=== PATIENT | male | born 1945 | race Caucasian/White ===

== ENCOUNTER 2018-01-26 08:20 | Outpatient (CLI) | payer MEDICARE, OTHER ==
--- NOTE | 2018-01-26 10:13 | RAD ---
LUMBAR SPINE 3 VIEWS: HISTORY: A 72-year-old male with a history of lumbar radiculopathy and low back pain for months. Neutral, flexion, extension, and lateral views of the lumbar spine are performed. Multilevel disk-os teophytosis with marked narrowing at L4-L5 and some posterior osteophytes as well as facet arthrosis. No evidence for abnormal translation between flexion and extension. IMPRESSION: Extensive spondylosis, particularly at L4-L5. No abnormal translation. POS: [facility]
== END 2018-01-26 08:21 | disposition home or self-care (01) ==
LOC: TBSIIMAG 08:20
PROVIDERS: ATTEND Neurological Surgery
DX: M47.26 Other spondylosis with radiculopathy, lumbar region (principal)
CPT/HCPCS: 72100

== ENCOUNTER 2018-07-28 07:52 | Outpatient (CLI) | payer MEDICARE, OTHER ==
[2018-07-28 11:19] LABS: #Eosinphils 0.1 thou/uL (0.0-0.7); #Lymphocytes 1.6 thou/uL (1.20-3.40); #Monocytes 0.7 thou/uL (0.11-0.59); #Neutrophils 5.1 thou/uL (1.40-6.50); %Basophils 0.5 % (0.0-1.0); %Eosinophils 1.1 % (0.0-10.0); %Lymphocytes 21.7 % (21.0-51.0); %Monocytes 9.6 % (0.0-10.0); Mean Corpuscular HGB CONC 31.3 g/dL (32.0-36.0); Mean Corpuscular Hemoglobin 26.4 pg (27.0-31.0); Mean Corpuscular Volume 84.2 fL (78.0-98.0); Mean Platelet Volume 7.6 fL (7.4-10.4); Platelet Count 263 thou/uL (130-400); RBC Distribution Width 13.6 % (11.5-14.5); Red Blood Cell (RBC) Count 5.31 mill/uL (4.70-6.10); White Blood Cell (WBC) Count 7.6 thou/uL (4.8-10.8)
[2018-07-28 11:45] LABS: ALT (SGPT) 9 U/L (8-55); AST (SGOT) 12 U/L (5-34); Albumin 3.9 g/dL (3.4-4.8); Alkaline Phosphatase 106 U/L (40-150); Anion Gap 14 mmol/L (10-20); BUN (Urea Nitrogen) 10 mg/dL (8.4-25.7); Bilirubin, Total 0.7 mg/dL (0.2-1.2); Calc. Creatinine Clearance 0 mL/min (70-130); Carbon Dioxide 28 mmol/L (23-31); Chloride 102 mmol/L (98-107); Estimated GFR-MDRD 90; Globulin 2.8 g/dL (2.4-3.5); Glucose 105 mg/dL (83-110); Potassium 4.3 mmol/L (3.5-5.1); Protein, Total 6.7 g/dL (5.8-8.1); Sodium 140 mmol/L (136-145)
== END 2018-07-28 07:53 | disposition home or self-care (01) ==
LOC: LABBT 07:52
PROVIDERS: ATTEND Internal Medicine Cardiovascular Disease
DX: Z01.812 Encounter for preprocedural laboratory examination (principal); R06.02 Shortness of breath
CPT/HCPCS: 80053; 85025

== ENCOUNTER → 2018-08-02 | Day surgery (SDC) | payer MEDICARE, OTHER ==
[2018-07-28 10:27] VITALS: BMI 38.6
[~2018-08-02] MED LIST: Diazepam 5 MG TAB ONE; Fentanyl 100 MCG/2 ML VIAL ONE; Heparin 10,000 UNITS/1 ML VIAL ONE; Iopamidol 370 76% 100 ML VIAL ONE; Isoproterenol 0.2 MG/1 ML AMP ONE; Lidocaine 1% (PF) 30 ML VIAL ONE; Midazolam HCl 2 mg/2 ml Vial ONE; Morphine 2 MG/ML SYRINGE ONE; Nitroglycerin 100MG/250ML BOT 250 ML ONE; Verapamil 5 MG/2 ML VIAL ONE
--- NOTE | 2018-08-02 22:48 | CON ---
DATE OF CONSULTATION: HISTORY OF PRESENT ILLNESS: This is a 73-year-old gentleman previously evaluated by Dr. Frankel about a year and a half ago. At that time, he had a nuclear stress study showing inferior scar and a diminished ejection fraction of around 20-25 percent. He was treated with medication with reported improvement in his ejection fraction, although had not had a repeat echo. This is the most recent echo was from November 16, 2016, showing 25% ejection fraction. He has been complaining of shortness of breath and this has been going on for at least the last year. He was scheduled for a stimulator to be placed in his back due to chronic back pain and because of this, repeat cardiac catheterization was recommended. PAST MEDICAL HISTORY: Includes: 1. Hypertension. 2. Dyslipidemia. 3. Obesity. 4. Previous atrial flutter. 5. Gastroesophageal reflux. 6. Obstructive sleep apnea. MEDICATIONS: Include: 1. Prilosec 20 daily. 2. Coreg 3.125 b.i.d. 3. Losartan 50 mg daily. 4. HCTZ 25 mg daily. 5. Isosorbide 30 daily. 6. Finasteride 5 mg daily. 7. Flomax 0.4 daily. 8. Lorazepam 0.5 p.r.n. anxiety. 9. Aspirin 81 daily. 10. Lamisil 250 daily. PAST SURGICAL HISTORY: Includes hernia repairs x6, beginning when he was [id number]. Also he had some sort of nerve tumor removed, has had previous back surgery, Aflutter, ablation, left hip surgery about a year and a half ago and a prior appendectomy. SOCIAL HISTORY: He is a nonsmoker. Does not drink. He is and accompanied by his . ALLERGIES: MELOXICAM. REVIEW OF SYSTEMS: He has nocturia x3, occasionally gets edema of his lower extremities. He does have snoring. He is unable to exercise due to a combination of back and hip pain and dyspnea. PHYSICAL EXAMINATION: GENERAL: He is alert, cooperative gentleman, overweight at 285 pounds. NECK: Without carotid bruits. LUNGS: Clear to auscultation. CARDIAC: Regular rate and rhythm. No murmurs. ABDOMEN: Obese, nontender. EXTREMITIES: He has palpable femoral pulses as well as a palpable pedal pulse in both feet. He has no peripheral edema today. I have reviewed his cardiac catheterization and he has rather small LAD diagonal vessels, which would be targets. The circumflex originates from his right coronary cusp and gives off a small first OM and a larger second OM with some moderate disease and haziness proximally. His right coronary artery occludes distally and does not fill any sizable vessels. He does have an acute marginal with some significant disease that may or may not be large enough to graft. Potential targets include diseased LAD diagonal, both with significant disease and obtuse marginal 2 and possibly a right acute marginal. Informed consent has been obtained and I would like to obtain a cardiac echo repeat, since it has been about a year and a half since his previous study to assess his left ventricular systolic function. Job ID: [id number]
== END ==
LOC: CCL 05:47
PROVIDERS: ATTEND Internal Medicine Cardiovascular Disease
PROC: 4A023N7 Measurement of Cardiac Sampling and Pressure, Left Heart, Percutaneous Approach (ICD-10-PCS; principal; 2018-08-02)
PROC: B2111ZZ Fluoroscopy of Multiple Coronary Arteries using Low Osmolar Contrast (ICD-10-PCS; 2018-08-02)
DX: I25.10 Atherosclerotic heart disease of native coronary artery without angina pectoris (principal); I25.82 Chronic total occlusion of coronary artery; I10 Essential (primary) hypertension; E78.5 Hyperlipidemia, unspecified; K21.9 Gastro-esophageal reflux disease without esophagitis; E78.00 Pure hypercholesterolemia, unspecified; G47.33 Obstructive sleep apnea (adult) (pediatric); I25.5 Ischemic cardiomyopathy; I48.3 Typical atrial flutter; E66.9 Obesity, unspecified; Z68.38 Body mass index [BMI] 38.0-38.9, adult; Z79.82 Long term (current) use of aspirin; Z79.899 Other long term (current) drug therapy; Z88.6 Allergy status to analgesic agent
CPT/HCPCS: 93458; 96374; 99152; C1769; J1644; J2001; J2250; J2270; J3010; Q9967

== ENCOUNTER 2018-08-24 04:38 | Outpatient (CLI) | payer MEDICARE, OTHER ==
[2018-08-24 12:32] LABS: #Eosinphils 0.1 thou/uL (0.0-0.7); #Monocytes 0.8 thou/uL (0.11-0.59); #Neutrophils 4.8 thou/uL (1.40-6.50); %Basophils 0.6 % (0.0-1.0); %Eosinophils 1.8 % (0.0-10.0); %Lymphocytes 25.8 % (21.0-51.0); %Monocytes 9.9 % (0.0-10.0); Hemoglobin 14.4 g/dL (14.0-18.0); Mean Corpuscular HGB CONC 30.7 g/dL (32.0-36.0); Mean Corpuscular Hemoglobin 26.4 pg (27.0-31.0); Mean Corpuscular Volume 85.9 fL (78.0-98.0); Mean Platelet Volume 7.9 fL (7.4-10.4); Platelet Count 228 thou/uL (130-400); RBC Distribution Width 14.1 % (11.5-14.5); Red Blood Cell (RBC) Count 5.47 mill/uL (4.70-6.10); White Blood Cell (WBC) Count 7.7 thou/uL (4.8-10.8)
[2018-08-24 12:50] LABS: Anion Gap 10 mmol/L (10-20); BUN (Urea Nitrogen) 12 mg/dL (8.4-25.7); Calc. Creatinine Clearance 0 mL/min (70-130); Calcium 9.5 mg/dL (7.8-10.44); Carbon Dioxide 32 mmol/L (23-31); Chloride 102 mmol/L (98-107); Estimated GFR-MDRD 86; Glucose 93 mg/dL (83-110); Potassium 4.1 mmol/L (3.5-5.1); Sodium 140 mmol/L (136-145)
--- NOTE | 2018-08-25 09:02 | EKG ---
Test Reason : Blood Pressure : / mmHG Vent. Rate : 072 BPM Atrial Rate : 072 BPM P-R Int : 180 ms QRS Dur : 146 ms QT Int : 436 ms P-R-T Axes : 091 094 083 degrees QTc Int : 477 ms Suspect arm lead reversal, interpretation assumes no reversal Normal sinus rhythm with sinus arrhythmia Right bundle branch block Abnormal ECG When compared with ECG of 17-NOV-2016 06:34, No significant change was found Confirmed by DR. King MADRIGAL ([id number]) on 08/25/2018 9:02:02 AM Referred By: ACACIA Confirmed By:DR. King MADRIGAL
== END 2018-08-24 04:39 | disposition home or self-care (01) ==
LOC: LABBT 04:38
PROVIDERS: ATTEND Thoracic Surgery (Cardiothoracic Vascular Surgery)
DX: Z01.818 Encounter for other preprocedural examination (principal); I25.10 Atherosclerotic heart disease of native coronary artery without angina pectoris
CPT/HCPCS: 80048; 85025; 86850; 86900; 86901; 93005; 93010

== ENCOUNTER 2018-08-24 10:15 | Inpatient (IN) | payer MEDICARE, OTHER ==
[2018-08-25] MEDS ORDERED: Bupivacaine HCl 0.5%/Epinephrine 1:200,000/PF 30 ml Vial ONE (06:32)
[2018-08-25] MEDS ORDERED: Dexamethasone 4 mg/ml Vial ONE (06:32)
[2018-08-25] MEDS ORDERED: Albumin 5% 500 ML ONE (06:32)
[2018-08-25] MEDS ORDERED: Midazolam HCl 2 mg/2 ml Vial ONE (06:33)
[2018-08-25] MEDS ORDERED: Fentanyl 100 MCG/2 ML VIAL ONE (06:33)
[2018-08-25] MEDS ORDERED: Vecuronium 10 MG VIAL ONE ×2 (06:34→13:26)
[2018-08-25] MEDS ORDERED: Midazolam HCl 5 mg/5 ml Vial ONE (06:34)
[2018-08-25] MEDS ORDERED: Dexmedetomidine 200 MCG/2 ML VIAL ONE (06:34)
[2018-08-25] MEDS ORDERED: Heparin 10,000 UNITS/1 ML VIAL 30,000 UNITS in Sodium Chloride 0.9% 1,000 ML FS SCH (07:15)
[2018-08-25] MEDS ORDERED: Phenylephrine 1% Nasal Spray 15 ML BOT ONE (09:57)
[2018-08-25] MEDS ORDERED: PHENYLEPHRINE-NS 100 MCG/ML 10 ML SYRINGE ONE ×2 (09:57→13:26)
[2018-08-25] MEDS ORDERED: DOPamine 400 MG/D5W 250 ML 250 ML IVPB PRN (12:20)
[2018-08-25] MEDS ORDERED: Promethazine HCl 25 MG/ML VIAL IM PRN (12:20)
[2018-08-25] MEDS ORDERED: HYDROcodone/Acetaminophen 5/325 mg Tablet PO PRN (12:20)
[2018-08-25] MEDS ORDERED: Bisacodyl 5 MG TAB PO PRN (12:20)
[2018-08-25] MEDS ORDERED: Hetastarch 6% 500 ML 500 ML IVPB PRN (12:20)
[2018-08-25] MEDS ORDERED: Guaifenesin DM 100-10/5 ML UDCUP PO PRN (12:20)
[2018-08-25] MEDS ORDERED: Nitroglycerin 50 MG/250 ML BOT 250 ML IVPB PRN (12:20)
[2018-08-25] MEDS ORDERED: Bisacodyl 10 MG SUPP PR PRN (12:20)
[2018-08-25] MEDS ORDERED: Mag-Al 1200 mg/1200 mg/30 ML UDCUP PO PRN (12:20)
[2018-08-25] MEDS ORDERED: Fentanyl 100 MCG/2 ML VIAL SLOW IVP PRN (12:20)
[2018-08-25] MEDS ORDERED: Norepinephrine 8 MG/0.9% NS 250 ML IVPB PRN (12:20)
[2018-08-25] MEDS ORDERED: Morphine 2 MG/ML SYRINGE SLOW IVP PRN (12:20)
[2018-08-25] MEDS ORDERED: Potassium Chloride 20 MEQ/100 ML PREMIX BAG IVPB PRN (12:20)
[2018-08-25] MEDS ORDERED: CEFAZOLIN/Water 2 GM/20 ML SYRINGE SLOW IVP SCH (12:20)
[2018-08-25] MEDS ORDERED: Post-Op Insulin Drip Protocol IVPB ONE (12:20)
[2018-08-25] MEDS ORDERED: niCARdipine HCl 25 MG in Sodium Chloride 0.9% 250 ML 240 ML IVPB PRN (12:20)
[2018-08-25] MEDS ORDERED: Ondansetron PF 4 MG/2 ML Vial IVP PRN (12:20)
[2018-08-25] MEDS ORDERED: HUMULIN R 100 UNITS in Sodium Chloride 0.9% 100 ML IVPB SCH (12:26)
[2018-08-25] MEDS ORDERED: Dextrose 5% in Water 1,000 ML IV PRN (12:26)
[2018-08-25] MEDS ORDERED: Dextrose 50% Abboject 50 ML SYRINGE SLOW IVP PRN (12:26)
[2018-08-25] MEDS ORDERED: Insulin Regular 300 UNITS/3 ML VIAL SC PRN (12:26)
[2018-08-25] MEDS ORDERED: Magnesium 2 GM/50 ML 2 GM in Premix Bag 1 BAG IVPB SCH (12:45)
[2018-08-25 12:48] LABS: Hemoglobin 13.3 g/dL (14.0-18.0); Mean Corpuscular HGB CONC 31.3 g/dL (32.0-36.0); Mean Corpuscular Hemoglobin 26.7 pg (27.0-31.0); Mean Corpuscular Volume 85.2 fL (78.0-98.0); Mean Platelet Volume 8.4 fL (7.4-10.4); Platelet Count 171 thou/uL (130-400); Red Blood Cell (RBC) Count 4.99 mill/uL (4.70-6.10); White Blood Cell (WBC) Count 17.2 thou/uL (4.8-10.8)
[2018-08-25 12:55] LABS: INR-International Normal Ratio 1.3; PTT 31.2 SEC (22.9-36.1); Prothrombin Time 15.9 SEC (12.0-14.7)
[2018-08-25] MEDS: Sodium Chloride 0.9% 1,000 ML IV SCH ×2 (12:56→23:10)
[2018-08-25 13:04] LABS: Anion Gap 10 mmol/L (10-20); BUN (Urea Nitrogen) 14 mg/dL (8.4-25.7); Calc. Creatinine Clearance 148 mL/min (70-130); Carbon Dioxide 26 mmol/L (23-31); Chloride 107 mmol/L (98-107); Estimated GFR-MDRD Greater than 90; Glucose 171 mg/dL (83-110); Potassium 4.8 mmol/L (3.5-5.1); Sodium 138 mmol/L (136-145)
[2018-08-25 13:14] LABS: Band 6 % (5-11); Lymphocytes 6 % (21-51); MDiff Complete? YES; Monocytes 6 % (0-10); Neutrophil 80 % (42-75); Ovalocytes SLIGHT = 2-5 cells (100X) (0-1/hpf); Platelet Morphology Comment Appears Adequate; Polychromasia SLIGHT = 2-3 cells (100X) (0-2/hpf); Reactive Lymphocytes 2 % (0-10)
[2018-08-25] MEDS ORDERED: Glycopyrrolate 0.2 MG/ML 5 ML SYRINGE ONE (13:26)
[2018-08-25] MEDS ORDERED: Heparin 5,000 UNITS/ML VIAL ONE (13:26)
[2018-08-25] MEDS ORDERED: Nitroglycerin 50 MG/250 ML BOT ONE (13:26)
[2018-08-25] MEDS ORDERED: Cardioplegic Soln 1,000 ML BAG ONE (13:26)
[2018-08-25] MEDS ORDERED: Mannitol 12.5 GM/50 ML ONE (13:26)
[2018-08-25] MEDS ORDERED: Potassium Chloride 60 MEQ/30 ML VIAL ONE (13:26)
[2018-08-25] MEDS ORDERED: Aminocaproic Acid 5 GM/20 ML VIAL ONE (13:26)
[2018-08-25] MEDS ORDERED: Papaverine 60 MG/2 ML VIAL ONE (13:26)
[2018-08-25] MEDS ORDERED: Calcium Chloride 1 GM/10 ML Abboject SYRINGE ONE (13:26)
[2018-08-25] MEDS ORDERED: Protamine Sulfate 250 MG/25 ML VIAL ONE (13:26)
[2018-08-25] MEDS ORDERED: Thrombin 5000 UNITS/5 ML VIAL ONE (13:26)
[2018-08-25] MEDS ORDERED: Ondansetron PF 4 MG/2 ML Vial ONE (13:26)
[2018-08-25] MEDS ORDERED: Ketorolac Tromethamine 30 MG/ML VIAL ONE (13:26)
[2018-08-25] MEDS ORDERED: Lidocaine 2% PF 100 mg/5 ml Syringe ONE (13:26)
[2018-08-25] MEDS ORDERED: Dexamethasone 20 MG/5 ML VIAL ONE (13:26)
[2018-08-25] MEDS ORDERED: Heparin 30,000 units/30 ml VIAL ONE (13:26)
[2018-08-25] MEDS ORDERED: Magnesium 5 GM/10 ML VIAL ONE (13:26)
[2018-08-25] MEDS ORDERED: ePHEDrine 50 MG/ML VIAL ONE (13:26)
[2018-08-25] MEDS ORDERED: Sodium Bicarb 50 MEQ/50 ML VIAL ONE (13:26)
[2018-08-25] MEDS: CEFAZOLIN 2 GM in Premix Bag 1 BAG IVPB SCH ×2 (13:31→22:08)
--- NOTE | 2018-08-25 13:44 | OP ---
DATE OF PROCEDURE: 08/25/2018 PREOPERATIVE DIAGNOSIS: Coronary artery disease. POSTOPERATIVE DIAGNOSIS: Coronary artery disease with very large heart. PROCEDURE PERFORMED: Coronary artery bypass graft x3, left internal mammary artery large to a 2 mm mid LAD with calcified licona, saphenous vein graft to a 2 to 2.5 mm OM, and saphenous vein graft to a 1.5 mm diagonal. PIER HAND: Liam. TRANSFUSION: None. DESCRIPTION OF PROCEDURE: After adequate anesthesia had been obtained, Dr. Wheeler performed an endovascular vein harvest of the left greater saphenous vein while I performed a median sternotomy. The left internal mammary artery was harvested. The patient heparinized. The mammary divided distally. It was treated with intraluminal papaverine. Left lobe of the thymus gland was resected to allow access into the mediastinum. The pericardial traction sutures were placed. Aorta and right atrium were cannulated, and cardiopulmonary bypass begun. Heart was quite large. The vessels were inspected for grafting. No right coronary system could be identified for grafting and the acute marginal was dissected out, but felt to be too small to graft. The OM1 was also too small to graft. The left atrial appendage was very large, thick, and covered in fat. Following aortic cross-clamping by Dr. Wheeler, 1200 mL of cold blood cardioplegia was given through the aortic root. Following which, the three distal anastomosis performed. Cross-clamp was removed, and the partial occluding clamp was placed. However, at that point, it was felt that there was a plaque at the site of the cardioplegia needle and the cross-clamp was reapplied. Indeed, there was a plaque in the aorta and a site was chosen more proximally for a single proximal anastomosis to be performed with the vein graft. Following completion of this, the cross-clamp was removed and the cardioplegic cannulation site was oversewn with a running 5-0 Prolene suture. To the proximal aspect of the diagonal graft, the OM graft was placed. The patient then had temporary atrial and ventricular pacing wires placed and was weaned from cardiopulmonary bypass. Cannula was removed, and the aortic cannulation site secured with a 4-0 Prolene suture. Mediastinal and left pleural drains were placed. Following this, the sternum was reapproximated using vancomycin paste on the sternal edges, platelet rich blood, and platelet poor plasma. Sternum was closed with #7 interrupted wires as well as 3 zip ties. Subcutaneous tissue and skin were closed in layers, and the patient was to be taken to the ICU in guarded condition. Job ID: [id number]
--- NOTE | 2018-08-25 13:45 | RAD ---
PORTABLE SUPINE CHEST: 08/25/2018 PROVIDED CLINICAL HISTORY: Post open heart. COMPARISON: 11/29/2016 FINDINGS: The cardiac silhouette appears enlarged, and the mediastinum appears widened. This may be on the bas is of portable supine technique. Median sternotomy changes are now seen. A left-sided mediastinal a nd/or pleural drain is noted. A right-sided central line is noted, the tip of which projects in the expected location of the right atrium. Surgical clips again overly the medial right hemithorax, supe riorly. There is blunting of each costophrenic angle, which may reflect pleural fluid. The supine n ature of the study is not sensitive for detection of pneumoperitoneum. IMPRESSION: Lines and tubes as above. POS: [facility]
[2018-08-25] MEDS: Fentanyl 100 MCG/2 ML VIAL SLOW IVP PRN ×2 (13:57→16:50)
[2018-08-25] MEDS: HYDROcodone/Acetaminophen 5/325 mg Tablet PO PRN ×2 (15:03→19:24)
[2018-08-25 17:28] LABS: Hemoglobin 12.7 g/dL (14.0-18.0)
[2018-08-25 18:00] LABS: Potassium 4.7 mmol/L (3.5-5.1)
[2018-08-25] MEDS ORDERED: Cepastat Lozenges 1 LOZ PO PRN (20:13)
[2018-08-25] MEDS ORDERED: Chloraseptic Spray 180 ml Bottle PO PRN (20:13)
[2018-08-25] MEDS: Tamsulosin HCl 0.4 MG CAP PO SCH (20:44)
[2018-08-25] MEDS: Atorvastatin Calcium 10 MG TAB PO SCH (20:44)
[2018-08-25] MEDS ORDERED: Famotidine/PF 20 mg/2ml Vial SLOW IVP SCH (21:00)
[2018-08-26] MEDS: HYDROcodone/Acetaminophen 5/325 mg Tablet PO PRN ×2 (00:46→06:39)
[2018-08-26 04:07] LABS: #Lymphocytes 1.2 thou/uL (1.20-3.40); #Monocytes 1.7 thou/uL (0.11-0.59); #Neutrophils 15.2 thou/uL (1.40-6.50); %Basophils 0.1 % (0.0-1.0); %Lymphocytes 6.7 % (21.0-51.0); %Monocytes 9.1 % (0.0-10.0); Hemoglobin 12.1 g/dL (14.0-18.0); Mean Corpuscular HGB CONC 31.4 g/dL (32.0-36.0); Mean Corpuscular Hemoglobin 27.1 pg (27.0-31.0); Mean Corpuscular Volume 86.1 fL (78.0-98.0); Mean Platelet Volume 7.7 fL (7.4-10.4); Platelet Count 159 thou/uL (130-400); RBC Distribution Width 13.9 % (11.5-14.5); Red Blood Cell (RBC) Count 4.46 mill/uL (4.70-6.10); White Blood Cell (WBC) Count 18.1 thou/uL (4.8-10.8)
[2018-08-26 04:25] LABS: Anion Gap 10 mmol/L (10-20); BUN (Urea Nitrogen) 14 mg/dL (8.4-25.7); Calc. Creatinine Clearance 172 mL/min (70-130); Calcium 8.3 mg/dL (7.8-10.44); Carbon Dioxide 27 mmol/L (23-31); Chloride 104 mmol/L (98-107); Estimated GFR-MDRD Greater than 90; Glucose 121 mg/dL (83-110); Potassium 4.4 mmol/L (3.5-5.1); Sodium 137 mmol/L (136-145)
[2018-08-26] MEDS: CEFAZOLIN 2 GM in Premix Bag 1 BAG IVPB SCH (06:01)
--- NOTE | 2018-08-26 08:39 | RAD ---
SINGLE VIEW OF THE CHEST: COMPARISON: 08/25/2018. HISTORY: Status post open heart surgery. FINDINGS: A single view of the chest shows an enlarged cardiomediastinal silhouette. The patient is status pos t CABG. The central venous catheter is unchanged in position. There appear to be small bilateral pl eural effusions. The left chest tubes are unchanged in position. No pneumothorax is seen. IMPRESSION: Stable exam. POS: [facility]
[2018-08-26] MEDS ORDERED: Bisacodyl 10 MG SUPP PR PRN (09:19)
[2018-08-26] MEDS ORDERED: Bisacodyl 5 MG TAB PO PRN (09:19)
[2018-08-26] MEDS ORDERED: Milk Of Magnesia 30 ML UDCUP PO PRN (09:19)
[2018-08-26] MEDS ORDERED: Nitroglycerin 0.4 MG TAB (25 Tab Bottle) SL PRN (09:19)
[2018-08-26] MEDS ORDERED: diphenhydrAMINE 25 MG CAP PO PRN (09:19)
[2018-08-26] MEDS ORDERED: Guaifenesin DM 100-10/5 ML UDCUP PO PRN (09:19)
[2018-08-26] MEDS ORDERED: Zolpidem Tartrate 5 MG TAB PO PRN (09:19)
[2018-08-26] MEDS ORDERED: Mag-Al 1200 mg/1200 mg/30 ML UDCUP PO PRN (09:19)
[2018-08-26] MEDS ORDERED: Mineral Oil ENEMA PR PRN (09:19)
[2018-08-26] MEDS ORDERED: Artificial Tears 18 DROP/0.9 ML EA EYE PRN (09:19)
[2018-08-26] MEDS: Aspirin 325 MG TAB PO SCH (09:52)
[2018-08-26] MEDS: Acetaminophen 325 MG TAB PO PRN (11:40)
[2018-08-26] MEDS ORDERED: Ketorolac Tromethamine 30 MG/ML VIAL IVP SCH (12:00)
[2018-08-26] MEDS: Lorazepam 0.5 MG TAB PO PRN ×2 (12:16→18:49)
[2018-08-26] MEDS ORDERED: Sterile Water 10 ML VIAL FS SCH (20:00)
[2018-08-26] MEDS ORDERED: Ziprasidone 20 MG VIAL IM SCH (20:00)
[2018-08-26] MEDS ORDERED: Furosemide 40 MG/4 ML VIAL ONE (20:15)
[2018-08-26] MEDS ORDERED: Sodium Bicarb 50 MEQ/50 ML VIAL ONE (20:15)
[2018-08-26] MEDS ORDERED: Furosemide 40 MG/4 ML VIAL SLOW IVP SCH (20:30)
[2018-08-26] MEDS ORDERED: Sodium Bicarb 50 MEQ/50 ML Abboject 8.4% SYRINGE IVP SCH (20:30)
[2018-08-26] MEDS ORDERED: Ziprasidone 20 MG VIAL ONE (21:28)
[2018-08-26] MEDS: Famotidine 20 MG TAB PO SCH (21:46)
[2018-08-26] MEDS: Atorvastatin Calcium 10 MG TAB PO SCH (21:46)
[2018-08-26] MEDS: Tamsulosin HCl 0.4 MG CAP PO SCH (21:46)
[2018-08-26] MEDS: Lorazepam 2 MG/ML VIAL SLOW IVP PRN (21:47)
[2018-08-26] MEDS ORDERED: Amiodarone 150 MG in Dextrose 5% in Water 100 ML IVPB SCH (22:00)
[2018-08-26] MEDS: Amiodarone In Dextrose 360 MG in Premix Bag 1 BAG IVPB SCH (22:08)
[2018-08-26 22:15] LABS: Actual Bicarbonate (HCO3a) 20.8 mEq/L (22-28); Base Excess (BEa) -5.6 mEq/L (-2.0 to +3.0); CO2 Tension 44.4 mmHg (35.0-45.0); Calcium, Ionized 1.12 mmol/L (1.12-1.30); Carboxyhemoglobin (COHb) 2.2 gm% (0.0-3.0); pH, Arterial 7.29 (7.35-7.45)
[2018-08-26 22:16] LABS: Puncture Site LRA
[2018-08-26] MEDS ORDERED: Digoxin 0.5 MG/2 ML AMP SLOW IVP SCH (23:30)
[2018-08-26] MEDS ORDERED: Digoxin 0.5 MG/2 ML AMP ONE (23:31)
[2018-08-27] MEDS: Lorazepam 2 MG/ML VIAL SLOW IVP PRN ×5 (02:19→22:11)
[2018-08-27] MEDS: Ziprasidone 20 MG VIAL IM PRN ×5 (02:25→22:14)
[2018-08-27] MEDS: Amiodarone In Dextrose 360 MG in Premix Bag 1 BAG IVPB SCH (03:43)
[2018-08-27] MEDS ORDERED: Digoxin 0.5 MG/2 ML AMP SLOW IVP SCH ×2 (04:00→12:00)
[2018-08-27] MEDS: Sterile Water 10 ML VIAL FS PRN ×4 (07:57→22:15)
[2018-08-27] MEDS: Aspirin 325 MG TAB PO SCH (09:21)
[2018-08-27] MEDS: Famotidine 20 MG TAB PO SCH ×2 (09:23→21:14)
[2018-08-27] MEDS: Enoxaparin Sodium 40 MG/0.4 ML SYRINGE SC SCH (09:23)
[2018-08-27] MEDS: Cefepime 1 GM in Sodium Chloride 0.9% 100 ML IVPB SCH ×2 (09:24→21:08)
--- NOTE | 2018-08-27 09:33 | CON ---
DATE OF CONSULTATION: HISTORY OF PRESENT ILLNESS: Ivan Chakraborty is a 73-year-old gentleman, status post CABG, who is now is encephalopathic in the ICU. Confused, agitated. His family member his and his daughter have just left. His ejection fraction was apparently 20% to 25%. He is extubated. His chest x-ray shows a left-sided retrocardiac density. He is clearly agitated. He was just given Geodon. PAST MEDICAL HISTORY: Hypertension, dyslipidemia, obesity, SVT, reflux, sleep apnea. HOME MEDICINES: Include: 1. Prilosec 20. 2. Coreg 3.125 twice a day. 3. Losartan 50. 4. Isosorbide 30 mg a day. 5. Finasteride 5 mg a day. 6. Flomax 0.4. 7. Ativan p.r.n. 8. Aspirin 81. 9. Lamisil 250 a day. PREVIOUS SURGERIES: Included multiple hernia operation, back surgery, flutter ablation, left hip surgery, previous appendix. SOCIAL HISTORY: Alcohol, none. Tobacco, none. REVIEW OF SYSTEMS: Otherwise unremarkable. PHYSICAL EXAMINATION: GENERAL: In the ICU, his sats are 92% on 3 L, temperature is 98, blood pressure is 142/61, pulse 115. CHEST: Decreased breath sounds, bilateral rhonchi. CARDIAC: Atrial fibrillation. ABDOMEN: Soft. LABORATORY DATA: His PO2 was 70, pCO2 40% to 9 L. X-ray shows a left-sided infiltrate. His lab from yesterday shows normal BUN and creatinine, but his white count is elevated 18,000, H and H 12 and 38, platelet count normal. IMPRESSION: 1. Metabolic encephalopathy. 2. Status post coronary artery bypass graft. 3. Left lower lobe infiltrate, possibly pneumonia. 4. Morbid obesity. 5. Sleep apnea. PLAN: Scheduled Haldol was given for the next 24 hours, Ativan p.r.n., neb treatments, antibiotics were initiated. We will follow while in the ICU. TIME SPENT: This is a consultation note, 70 minutes, 50% direct patient care. Job ID: [id number]
[2018-08-27] MEDS ORDERED: Metoprolol Tartrate 5 MG/5 ML VIAL IVP SCH (11:45)
[2018-08-27] MEDS: Haloperidol Lactate 5 MG/ML VIAL SLOW IVP SCH ×2 (12:00→19:05)
--- NOTE | 2018-08-27 12:09 | CON ---
DATE OF CONSULTATION: HISTORY OF PRESENT ILLNESS: Ivan Chakraborty is a 73-year-old white male, patient of Dr. Frankel. In 11/2016, he underwent ablation of atrial flutter. Cardiac catheterization at [facility] in 05/2017 revealed a 90% mid LAD, 30% first diagonal. The circumflex arose from the right coronary artery with 50% lesion. There was an 80% lesion in the right ventricular branch of the RCA and the right posterolateral branch was totally occluded. He was treated medically, but continued to have exertional dyspnea as well as chest discomfort. He recently underwent repeat catheterization at [facility] on 08/19/2018. He was found to have 3-vessel coronary artery disease. There was a 30% left main, 90% mid LAD, 50% diagonal, 60% mid circumflex, which arose from the right coronary artery. A 50% proximal RCA and totally occluded distal RCA. It was recommended that he undergo bypass surgery which was performed on 08/25. The SOLOMON was placed to the LAD, saphenous vein graft to the obtuse marginal, and saphenous vein graft to the diagonal. No right coronary artery system could be identified for grafting. The acute marginal was dissected out, but felt to be too small to graft. Postoperatively, he has gone into atrial fibrillation with fast ventricular response and at times appears to be atrial flutter with 2:1 conduction with a rate of 230 to 240. He has been placed on IV amiodarone and given digoxin 0.5 mg IV x2. At the present time, he remains in atrial fibrillation with rates in the 110s to 120s. The patient also been combative and has been sedated. The family denies that he drinks. The patient is unable to give any history at this time. PAST MEDICAL HISTORY: Hypertension, hyperlipidemia, GERD, obstructive sleep apnea. MEDICATIONS: At home include: 1. Prilosec 20 daily. 2. Carvedilol 3.125 b.i.d. 3. Losartan 50 daily. 4. Hydrochlorothiazide 25 daily. 5. Isosorbide 30 daily. 6. Finasteride 5 mg daily. 7. Flomax 0.4 daily. 8. Aspirin 81 daily. Lamisil 250 daily. OPERATIONS: Hernia repair, CABG, back surgery, atrial flutter ablation, appendectomy, left hip surgery. SOCIAL HISTORY: He does not smoke or drink. ALLERGIES: MELOXICAM. REVIEW OF SYSTEMS: Unobtainable. PHYSICAL EXAMINATION: VITAL SIGNS: Blood pressure 135/72, pulse of 121 and irregularly irregular. HEENT: PERRL. NECK: Supple. CHEST: Reveals occasional rhonchi. CARDIOVASCULAR: S1 and S2 are normal without any S3, S4, or murmurs. ABDOMEN: Normal bowel sounds without tenderness or organomegaly. EXTREMITIES: Revealed no clubbing, cyanosis. There is 1+ pretibial edema. NEUROLOGICAL: The patient is sedated due to his agitation. LABORATORY DATA: EKG reveals atrial fibrillation with fast ventricular response and right bundle-branch block pattern. Hemoglobin 12.1, hematocrit 38.4, white count 18,100, platelets 159,000. IMPRESSION: 1. Status post coronary artery bypass grafting. 2. Postoperative atrial flutter with a rate of approximately 220 per minute, and is now in atrial fibrillation. 3. History of atrial flutter ablation in the past. 4. Hypertension. 5. Hypercholesterolemia. PLAN: The patient will be maintained on intravenous amiodarone. At times, his pressure is somewhat low, but other times has increased to 135/99. I will give one dose of metoprolol 5 mg IV. Digoxin level will be obtained in the morning. Job ID: [id number]
[2018-08-27] MEDS ORDERED: Amiodarone 450 MG, Admixture Fee 1 EACH in Dextrose 5% in Water 250 ML IVPB SCH (15:00)
[2018-08-27] MEDS: Tamsulosin HCl 0.4 MG CAP PO SCH (21:14)
[2018-08-27] MEDS: Atorvastatin Calcium 10 MG TAB PO SCH (21:14)
[2018-08-28] MEDS: Haloperidol Lactate 5 MG/ML VIAL SLOW IVP SCH ×3 (00:15→08:23)
[2018-08-28] MEDS: Ziprasidone 20 MG VIAL IM PRN (02:00)
[2018-08-28] MEDS: Sterile Water 10 ML VIAL FS PRN (02:00)
[2018-08-28] MEDS ORDERED: Amiodarone In Dextrose 360 MG in Premix Bag 1 BAG IVPB SCH (02:30)
[2018-08-28 05:01] LABS: Anion Gap 12 mmol/L (10-20); BUN (Urea Nitrogen) 24 mg/dL (8.4-25.7); Calc. Creatinine Clearance 131 mL/min (70-130); Calcium 8.7 mg/dL (7.8-10.44); Carbon Dioxide 27 mmol/L (23-31); Chloride 99 mmol/L (98-107); Estimated GFR-MDRD 77; Glucose 142 mg/dL (83-110); Potassium 4.6 mmol/L (3.5-5.1); Sodium 133 mmol/L (136-145)
[2018-08-28 05:04] LABS: Band 2 % (5-11); Hemoglobin 11.7 g/dL (14.0-18.0); Hypochromia SLIGHT = 6-15 cells (100X) (0-5/hpf); Lymphocytes 6 % (21-51); MDiff Complete? YES; Mean Corpuscular HGB CONC 30.6 g/dL (32.0-36.0); Mean Corpuscular Hemoglobin 26.7 pg (27.0-31.0); Mean Corpuscular Volume 87.4 fL (78.0-98.0); Mean Platelet Volume 8.5 fL (7.4-10.4); Monocytes 7 % (0-10); Neutrophil 85 % (42-75); Platelet Count 181 thou/uL (130-400); Platelet Morphology Comment Appears Adequate; Red Blood Cell (RBC) Count 4.37 mill/uL (4.70-6.10); White Blood Cell (WBC) Count 21.4 thou/uL (4.8-10.8)
[2018-08-28] MEDS ORDERED: Haloperidol Lactate 5 MG/ML VIAL SLOW IVP PRN (07:53)
[2018-08-28] MEDS: Sodium Chloride 0.9% 1,000 ML IV SCH (08:22)
--- NOTE | 2018-08-28 08:35 | RAD ---
AP VIEW CHEST: HISTORY: Status post CABG. FINDINGS: AP view chest was obtained on 08/28/2018. Comparison is made to previous exam from 08/26/2018. AP view chest demonstrates sternotomy wires seen. Right subclavian surgical clips in place. There is a right subclavian central line distal tip overlying the SVC and right atrial junction. EKG leads seen over the chest. Bilateral small pleural effusions seen. Cardiomegaly is seen. Pulmonary vascular congestion is note d. No evidence of hemopneumothorax is seen. IMPRESSION: 1. Slightly increasing small bilateral pleural effusions. 2. left-sided chest tube has been removed. A mediastinal drain appears to have been repositioned. POS: [facility]
[2018-08-28] MEDS: Digoxin 0.5 MG/2 ML AMP SLOW IVP SCH (08:43)
[2018-08-28] MEDS: Cefepime 1 GM in Sodium Chloride 0.9% 100 ML IVPB SCH ×2 (08:45→21:36)
--- NOTE | 2018-08-28 08:45 | PRG ---
DATE OF SERVICE: SUBJECTIVE: This morning, he is sedated, Ativan and Haldol. OBJECTIVE: VITAL SIGNS: Pulse 107, respiratory rate 26, blood pressure 154/108, temperature 99.2. CHEST: Decreased breath sounds. No wheezing. CARDIAC: Normal S1 and S2. No gallops. ABDOMEN: No masses. LABORATORY STUDIES: White count 21,000, H and H 11 and 38, platelet count is normal. His lytes are normal. Sodium 133. X-ray shows left pleural effusion, infiltrate. IMPRESSION: Metabolic encephalopathy, status post coronary artery bypass grafting, supraventricular tachycardia, left pneumonia, effusion. PLAN: Continue neb treatments, antibiotics, p.r.n. Haldol. We will follow while in the ICU. Job ID: [id number]
[2018-08-28] MEDS: Enoxaparin Sodium 40 MG/0.4 ML SYRINGE SC SCH (08:48)
[2018-08-28] MEDS: hydrALAZINE 20 MG/ML VIAL SLOW IVP PRN (11:15)
[2018-08-28] MEDS: Amiodarone 450 MG, Admixture Fee 1 EACH in Dextrose 5% in Water 250 ML IVPB SCH (14:37)
[2018-08-28] MEDS: Aspirin 325 MG TAB PO SCH (17:43)
[2018-08-28] MEDS: Famotidine 20 MG TAB PO SCH ×2 (17:44→21:42)
[2018-08-28] MEDS: Tamsulosin HCl 0.4 MG CAP PO SCH (21:42)
[2018-08-28] MEDS: Atorvastatin Calcium 10 MG TAB PO SCH (21:42)
[2018-08-29] MEDS: hydrALAZINE 20 MG/ML VIAL SLOW IVP PRN ×2 (00:05→06:02)
[2018-08-29] MEDS: Lorazepam 2 MG/ML VIAL SLOW IVP PRN (02:03)
[2018-08-29] MEDS: Ziprasidone 20 MG VIAL IM PRN (02:04)
[2018-08-29] MEDS: Sterile Water 10 ML VIAL FS PRN (02:04)
[2018-08-29 06:09] VITALS: BMI 38.9
[2018-08-29] MEDS: Amiodarone 450 MG, Admixture Fee 1 EACH in Dextrose 5% in Water 250 ML IVPB SCH ×2 (06:38→21:10)
[2018-08-29] MEDS ORDERED: Furosemide 20 MG/2 ML VIAL SLOW IVP SCH (06:45)
--- NOTE | 2018-08-29 09:12 | PRG ---
DATE OF SERVICE: 08/29/2018 SUBJECTIVE: This morning, he is less confused, less agitated, awake, alert. OBJECTIVE: VITAL SIGNS: Pulse is still 120, irregular; respiratory rate 24; and sats are 95%. His blood pressure is 119/95. CHEST: Decreased breath sounds without any wheezing. CARDIAC: Normal S1 and S2. No gallops. ABDOMEN: No masses. IMPRESSION: 1. Status post coronary artery bypass graft. 2. Supraventricular tachycardia. 3. Encephalopathy. 4. Pleural effusion, left greater than right. PLAN: Continue present antibiotics, neb treatments, supportive care, and PT. Repeat swallow study. We will follow while in the ICU. Job ID: [id number]
[2018-08-29] MEDS: Cefepime 1 GM in Sodium Chloride 0.9% 100 ML IVPB SCH ×2 (09:18→20:10)
[2018-08-29] MEDS: Enoxaparin Sodium 40 MG/0.4 ML SYRINGE SC SCH (09:18)
[2018-08-29] MEDS: Digoxin 0.5 MG/2 ML AMP SLOW IVP SCH (09:19)
[2018-08-29] MEDS: Famotidine 20 MG TAB PO SCH ×2 (09:22→21:04)
[2018-08-29] MEDS: Losartan 25 MG TAB PO SCH (09:23)
[2018-08-29] MEDS: Finasteride 5 MG TAB PO SCH (09:23)
[2018-08-29] MEDS: Tamsulosin HCl 0.4 MG CAP PO SCH (09:23)
[2018-08-29] MEDS: Aspirin 325 MG TAB PO SCH (09:24)
[2018-08-29 13:44] LABS: Actual Bicarbonate (HCO3a) 25.8 mEq/L (22-28); Analyzer IN Cardio OR; Base Excess (BEa) 0.7 mEq/L (-2.0 to +3.0); CO2 Tension 43.6 mmHg (35.0-45.0); Calcium, Ionized 1.21 mmol/L (1.12-1.30); Carboxyhemoglobin (COHb) 0.4 gm% (0.0-3.0); Hemoglobin (Hb) 10.6 g/dL (14.0-18.0); O2 Tension (PaO2) 407.7 mmHg (> 70.0); Potassium - ABG Lab 5.24 mmol/L (3.70-5.30); pH, Arterial 7.39 (7.35-7.45)
[2018-08-29 13:48] LABS: Actual Bicarbonate (HCO3a) 26.5 mEq/L (22-28); Analyzer IN Cardio OR; Base Excess (BEa) 0.5 mEq/L (-2.0 to +3.0); CO2 Tension 48.2 mmHg (35.0-45.0); Calcium, Ionized 1.18 mmol/L (1.12-1.30); Carboxyhemoglobin (COHb) 0.9 gm% (0.0-3.0); Hemoglobin (Hb) 13.5 g/dL (14.0-18.0); pH, Arterial 7.36 (7.35-7.45)
[2018-08-29 13:49] LABS: Actual Bicarbonate (HCO3v) 27 mEq/L (22-28); Analyzer IN Cardio OR; Base Excess 0.6 mEq/L (-2.0 to +3.0); Calcium, Ionized 1.09 mmol/L (1.16-1.32); Chloride (ABG LAB) 102 mmol/L (98-106); Hemoglobin (Hb) 11.2 g/dL (12.6-17.4); Potassium - ABG Lab 5.22 mmol/L (3.70-5.30); Sodium 135.8 mmol/L (133-146); pH (venous) 7.32 (7.32-7.43)
[2018-08-29 13:49] LABS: Actual Bicarbonate (HCO3a) 26.8 mEq/L (22-28); Analyzer IN Cardio OR; Base Excess (BEa) 1.3 mEq/L (-2.0 to +3.0); CO2 Tension 46.4 mmHg (35.0-45.0); Calcium, Ionized 1.09 mmol/L (1.12-1.30); Carboxyhemoglobin (COHb) 0.2 gm% (0.0-3.0); Hemoglobin (Hb) 11.3 g/dL (14.0-18.0); pH, Arterial 7.38 (7.35-7.45)
[2018-08-29 13:50] LABS: Actual Bicarbonate (HCO3a) 24.7 mEq/L (22-28); Analyzer IN Cardio OR; Base Excess (BEa) -0.8 mEq/L (-2.0 to +3.0); CO2 Tension 44.2 mmHg (35.0-45.0); Calcium, Ionized 1.11 mmol/L (1.12-1.30); Carboxyhemoglobin (COHb) 0.7 gm% (0.0-3.0); Potassium - ABG Lab 4.18 mmol/L (3.70-5.30); pH, Arterial 7.37 (7.35-7.45)
[2018-08-29 13:57] LABS: Puncture Site ALINE
[2018-08-29 13:58] LABS: Puncture Site ALINE
[2018-08-29 14:01] LABS: Puncture Site ALINE
[2018-08-29 14:01] LABS: Puncture Site ALINE
[2018-08-29] MEDS ORDERED: Furosemide 40 MG TAB PO SCH (19:45)
[2018-08-29] MEDS ORDERED: Polyethylene Glycol 3350 17 GM Packet PO SCH (19:45)
[2018-08-29] MEDS: Atorvastatin Calcium 10 MG TAB PO SCH ×2 (20:09→20:10)
[2018-08-30] MEDS: Lorazepam 2 MG/ML VIAL SLOW IVP PRN ×2 (05:05→23:24)
--- NOTE | 2018-08-30 09:03 | PRG ---
DATE OF SERVICE: 08/30/2018 SUBJECTIVE: Lethargic this morning, but arousable. OBJECTIVE: VITAL SIGNS: Sats are 99% on room air, respiratory rate 25, pulse 82, afebrile, blood pressure 176/98. CHEST: Decreased breath sounds. No wheezing. CARDIAC: Normal S1 and S2. No gallops. IMPRESSION: 1. Status post coronary artery bypass graft. 2. Morbid obesity. 3. Encephalopathy, left-sided infiltrate. PLAN: Switch over to oral antibiotics. PT supportive care. We will follow. Job ID: [id number]
[2018-08-30] MEDS: Aspirin 325 MG TAB PO SCH ×2 (09:48→10:14)
[2018-08-30] MEDS: Cefdinir 300 MG CAP PO SCH ×3 (09:48→20:13)
[2018-08-30] MEDS: Losartan 25 MG TAB PO SCH (09:48)
[2018-08-30] MEDS: Finasteride 5 MG TAB PO SCH (09:49)
[2018-08-30] MEDS: Amiodarone 200 MG TAB PO SCH ×3 (09:49→20:13)
[2018-08-30] MEDS: Furosemide 40 MG TAB PO SCH ×2 (09:51→10:14)
[2018-08-30] MEDS: Lorazepam 0.5 MG TAB PO SCH ×3 (09:51→20:12)
[2018-08-30] MEDS: Famotidine 20 MG TAB PO SCH ×3 (09:52→20:13)
[2018-08-30] MEDS: Tamsulosin HCl 0.4 MG CAP PO SCH (09:53)
[2018-08-30] MEDS: Digoxin 0.5 MG/2 ML AMP SLOW IVP SCH (09:53)
[2018-08-30] MEDS: Polyethylene Glycol 3350 17 GM Packet PO SCH (09:54)
[2018-08-30] MEDS: Enoxaparin Sodium 40 MG/0.4 ML SYRINGE SC SCH (09:54)
--- NOTE | 2018-08-30 12:44 | EKG ---
Test Reason : POST CABG Blood Pressure : / mmHG Vent. Rate : 084 BPM Atrial Rate : 084 BPM P-R Int : 232 ms QRS Dur : 158 ms QT Int : 440 ms P-R-T Axes : 098 103 051 degrees QTc Int : 519 ms Suspect arm lead reversal, interpretation assumes no reversal Sinus rhythm with 1st degree A-V block Right bundle branch block Abnormal ECG When compared with ECG of 24-AUG-2018 11:30, FL interval has increased Nonspecific T wave abnormality now evident in Inferior leads Confirmed by DR. King MADRIGAL ([id number]) on 08/30/2018 12:43:55 PM Referred By: RALPH Confirmed By:DR. King MADRIGAL
--- NOTE | 2018-08-30 12:46 | EKG ---
Test Reason : STAT Blood Pressure : / mmHG Vent. Rate : 163 BPM Atrial Rate : 182 BPM P-R Int : 000 ms QRS Dur : 136 ms QT Int : 304 ms P-R-T Axes : 000 104 001 degrees QTc Int : 500 ms Atrial fibrillation with rapid ventricular response Right bundle branch block T wave abnormality, consider inferior ischemia Abnormal ECG When compared with ECG of 25-AUG-2018 12:49, (Unconfirmed) Atrial fibrillation has replaced Sinus rhythm Vent. rate has increased BY 79 BPM Questionable change in QRS duration Confirmed by DR. King MADRIGAL ([id number]) on 08/30/2018 12:45:56 PM Referred By: Yousif ROSAS Confirmed By:DR. King MADRIGAL
--- NOTE | 2018-08-30 18:14 | PRG ---
DATE OF SERVICE: 08/30/2018 SUBJECTIVE: Mr. Chakraborty is confused again today. He was more confused on Tuesday, became more lucid yesterday, and has more confusion today. I did discuss with the his current status. He states prior to his surgery, he slept very little for 2 days in anticipation of surgery. He has also had a little sleep since he has been in the hospital post bypass surgery. He also has been diagnosed with left-sided infiltrate and placed on antibiotic therapy. OBJECTIVE: VITAL SIGNS: Blood pressure 110/58, pulse 82, temperature afebrile. LUNGS: Clear to auscultation. HEART: Regular rate and rhythm. ABDOMEN: Soft, nontender, and nondistended. EXTREMITIES: No edema. PERTINENT LABORATORY DATA: Hemoglobin 11.7, white blood cell count 21,000. Creatinine 0.96. IMPRESSION: 1. Coronary artery disease. 2. Status post bypass surgery. 3. Delirium. RECOMMENDATIONS: This may be due to poor inspiration and recent pneumonia. This may also be due to lack of sleep. At this point, we will continue close monitoring. No focal findings are present. He is currently on amiodarone at 400 mg p.o. b.i.d., in addition to aspirin and metoprolol. Job ID: [id number]
[2018-08-30] MEDS: Atorvastatin Calcium 10 MG TAB PO SCH (20:13)
[2018-08-31] MEDS: Lorazepam 2 MG/ML VIAL SLOW IVP PRN (02:45)
--- NOTE | 2018-08-31 08:59 | RAD ---
SINGLE VIEW OF CHEST: Date: 08/31/18 COMPARISON: 08/28/18. HISTORY: Status post CABG. FINDINGS: Single view of the chest shows an enlarged cardiomediastinal silhouette. The patient is status post C ABG. The central venous catheter is unchanged in position. There are small bilateral pleural effusion s with adjacent atelectasis. IMPRESSION: 1. Bilateral pleural effusions. 2. Cardiomegaly. POS: [facility]
--- NOTE | 2018-08-31 09:21 | CT ---
CT OF HEAD NONCONTRAST: INDICATION: Postoperative confusion. FINDINGS: There is mild generalized parenchymal volume loss. The ventricular system is age appropriate in size . Septum pellucidum and third ventricle are midline. There is no acute intracranial hemorrhage, mas s effect, or midline shift. There are a few scattered small areas of hypoattenuation indicating glio sis from microvascular ischemic disease. No hemorrhage, mass effect, or midline shift. Incidental note of retention cyst formation occupying the posterior aspect of the right maxillary sin us. Trace mucosal thickening is seen within the ethmoid air cells. IMPRESSION: 1. No acute intracranial hemorrhage or mass effect. 2. Mild microvascular ischemic disease. POS: [facility]
[2018-08-31] MEDS: Finasteride 5 MG TAB PO SCH (09:42)
[2018-08-31] MEDS: Amiodarone 200 MG TAB PO SCH ×2 (09:42→21:15)
[2018-08-31] MEDS: Tamsulosin HCl 0.4 MG CAP PO SCH (09:42)
[2018-08-31] MEDS: Aspirin 325 MG TAB PO SCH (09:42)
[2018-08-31] MEDS: Cefdinir 300 MG CAP PO SCH ×2 (09:44→21:16)
[2018-08-31] MEDS: Losartan 25 MG TAB PO SCH (09:44)
[2018-08-31] MEDS: Furosemide 40 MG TAB PO SCH (09:44)
[2018-08-31] MEDS: Famotidine 20 MG TAB PO SCH ×2 (09:44→21:16)
[2018-08-31] MEDS: Lorazepam 0.5 MG TAB PO SCH ×2 (09:45→21:16)
[2018-08-31] MEDS: Digoxin 0.5 MG/2 ML AMP SLOW IVP SCH (09:45)
[2018-08-31] MEDS: Polyethylene Glycol 3350 17 GM Packet PO SCH (09:46)
[2018-08-31] MEDS: Enoxaparin Sodium 40 MG/0.4 ML SYRINGE SC SCH (09:46)
--- NOTE | 2018-08-31 10:02 | PRG ---
DATE OF SERVICE: 08/31/2018 SUBJECTIVE: Ivan Chakraborty this morning is less confused. He is walking. OBJECTIVE: VITAL SIGNS: Sats are 98% on room air, respiratory rate 18, and pulse 83, blood pressure 140/114. CHEST: Decreased breath sounds. No wheezing. CARDIAC: Normal S1, S2. No gallops. ABDOMEN: No masses. IMPRESSION: Metabolic encephalopathy, status post coronary artery bypass grafting, left-sided effusion, infiltrate. PLAN: Avoid excessive sedation. PT, supportive care. We will follow. Job ID: [id number]
--- NOTE | 2018-08-31 14:07 | PRG ---
DATE OF SERVICE: 08/31/2018 SUBJECTIVE: Mr. Chakraborty is currently doing much better. He is much more lucid today. OBJECTIVE: VITAL SIGNS: Blood pressure 160/70, pulse 79, temperature afebrile. LUNGS: Rhonchi and rales bilaterally. HEART: Regular rate and rhythm. ABDOMEN: Soft, nontender, and nondistended. EXTREMITIES: No edema. IMPRESSION: 1. Coronary artery disease. 2. Statu post bypass surgery. 3. Delirium. 4. ? pneumonia. RECOMMENDATIONS: I stressed Mr. Chakraborty the importance of using incentive spirometry. He likely has atelectasis. He is being followed by Dr. Rafi Gaona. We would also recommend ambulation. We will also hold his Ativan this morning. This may have contributed to his somnolence yesterday. If he needs it further means, we would then provide, but at this point, we will defer. It would be okay from my standpoint to transfer to tele. Job ID: [id number]
[2018-08-31] MEDS: Acetaminophen 325 MG TAB PO PRN (18:00)
[2018-08-31] MEDS ORDERED: Furosemide 20 MG/2 ML VIAL SLOW IVP SCH (18:45)
[2018-09-01 05:13] LABS: #Eosinphils 0.2 thou/uL (0.0-0.7); #Lymphocytes 1.4 thou/uL (1.20-3.40); #Monocytes 0.8 thou/uL (0.11-0.59); #Neutrophils 6.3 thou/uL (1.40-6.50); %Basophils 0.5 % (0.0-1.0); %Eosinophils 1.9 % (0.0-10.0); %Lymphocytes 15.6 % (21.0-51.0); %Monocytes 9.6 % (0.0-10.0); %Neutrophils 72.4 % (42.0-75.0); Hemoglobin 11.2 g/dL (14.0-18.0); Mean Corpuscular HGB CONC 30.2 g/dL (32.0-36.0); Mean Corpuscular Hemoglobin 26.6 pg (27.0-31.0); Mean Corpuscular Volume 88.1 fL (78.0-98.0); Platelet Count 325 thou/uL (130-400); RBC Distribution Width 14.2 % (11.5-14.5); Red Blood Cell (RBC) Count 4.22 mill/uL (4.70-6.10); White Blood Cell (WBC) Count 8.7 thou/uL (4.8-10.8)
[2018-09-01 05:34] LABS: Anion Gap 13 mmol/L (10-20); BUN (Urea Nitrogen) 13 mg/dL (8.4-25.7); Calc. Creatinine Clearance 179 mL/min (70-130); Calcium 8.6 mg/dL (7.8-10.44); Carbon Dioxide 37 mmol/L (23-31); Chloride 92 mmol/L (98-107); Estimated GFR-MDRD Greater than 90; Glucose 100 mg/dL (83-110); Potassium 3.5 mmol/L (3.5-5.1); Sodium 138 mmol/L (136-145)
[2018-09-01] MEDS ORDERED: Losartan 25 MG TAB PO SCH (06:36)
[2018-09-01] MEDS ORDERED: Furosemide 40 MG/4 ML VIAL SLOW IVP SCH ×2 (06:45→16:00)
--- NOTE | 2018-09-01 09:05 | PRG ---
DATE OF SERVICE: 09/01/2018 SUBJECTIVE: Ivan Chakraborty this morning is less encephalopathic. OBJECTIVE: VITAL SIGNS: Blood pressure is 187/92, sats are 97% on 2 L, respiratory rate 16, temperature 98. Denies any difficulty breathing. CHEST: Decreased breath sounds without any wheezing. CARDIAC: Normal S1, S2. No gallop. ABDOMEN: No masses. LABORATORY DATA: White count 8000, H and H are 11 and 37, platelet count normal. Lytes are normal. IMPRESSION: 1. Metabolic encephalopathy. 2. Respiratory failure, status post coronary artery bypass grafting. 3. Bilateral pleural effusion, thick. PLAN: Continue antibiotics, neb treatments, supportive care. We will follow. Job ID: [id number]
[2018-09-01] MEDS: Cefdinir 300 MG CAP PO SCH ×2 (09:27→21:08)
[2018-09-01] MEDS: Tamsulosin HCl 0.4 MG CAP PO SCH (09:27)
[2018-09-01] MEDS: Losartan 25 MG TAB PO SCH (09:27)
[2018-09-01] MEDS: Amiodarone 200 MG TAB PO SCH (09:27)
[2018-09-01] MEDS: Finasteride 5 MG TAB PO SCH (09:27)
[2018-09-01] MEDS: Carvedilol 3.125 MG TAB PO SCH ×2 (09:27→16:24)
[2018-09-01] MEDS: Enoxaparin Sodium 40 MG/0.4 ML SYRINGE SC SCH (09:28)
[2018-09-01] MEDS: Lorazepam 0.5 MG TAB PO SCH ×2 (09:29→21:08)
[2018-09-01] MEDS: Polyethylene Glycol 3350 17 GM Packet PO SCH (09:29)
[2018-09-01] MEDS: Famotidine 20 MG TAB PO SCH ×2 (09:33→21:08)
[2018-09-01] MEDS: Aspirin 325 MG TAB PO SCH (09:36)
--- NOTE | 2018-09-01 13:37 | PRG ---
DATE OF SERVICE: 09/01/2018 SUBJECTIVE: Mr. Chakraborty is more lucid today. No current complaints. He states he was up in the chair. He has been using incentive spirometry. No current fevers present. OBJECTIVE: VITAL SIGNS: Blood pressure 159/90, heart rate is 81, and respirations 20. LUNGS: Clear to auscultation. HEART: Regular rate and rhythm. ABDOMEN: Soft, nontender, and nondistended. EXTREMITIES: No edema. IMPRESSION: 1. Coronary artery disease. 2. Status post bypass surgery. 3. Previous history of atrial flutter. 4. Delirium. RECOMMENDATIONS: Mr. Chakraborty's confusion appears to be improving. We will recommend decreasing amiodarone to 400 mg p.o. q.a.m. for 1 month and discontinue it. The patient is currently on atorvastatin in addition to Coreg. Job ID: [id number]
[2018-09-01] MEDS: Furosemide 40 MG/4 ML VIAL SLOW IVP SCH (16:24)
[2018-09-01] MEDS: Atorvastatin Calcium 10 MG TAB PO SCH (21:08)
[2018-09-02] MEDS ORDERED: Amiodarone 200 MG TAB PO SCH (09:00)
[2018-09-02] MEDS: Enoxaparin Sodium 40 MG/0.4 ML SYRINGE SC SCH (10:25)
[2018-09-02] MEDS: Polyethylene Glycol 3350 17 GM Packet PO SCH (10:25)
[2018-09-02] MEDS: Famotidine 20 MG TAB PO SCH (10:26)
[2018-09-02] MEDS: Losartan 25 MG TAB PO SCH (10:26)
[2018-09-02] MEDS: Cefdinir 300 MG CAP PO SCH (10:27)
[2018-09-02] MEDS: Finasteride 5 MG TAB PO SCH (10:27)
[2018-09-02] MEDS: Carvedilol 3.125 MG TAB PO SCH ×2 (10:27→16:51)
[2018-09-02] MEDS: Tamsulosin HCl 0.4 MG CAP PO SCH (10:27)
[2018-09-02] MEDS: Aspirin 325 MG TAB PO SCH (10:27)
[2018-09-02] MEDS: Lorazepam 0.5 MG TAB PO SCH (11:00)
[2018-09-02 11:31] VITALS: TEMP 97.9
--- NOTE | 2018-09-02 11:45 | PRG ---
DATE OF SERVICE: 09/02/2018 SUBJECTIVE: Mr. Chakraborty is doing much better today. His family says he is almost back to normal. He is sitting in the chair. He has no complaints. He does seem slightly to be confused at times, but he has been on the oxygen and has been apparently doing very well. OBJECTIVE: VITAL SIGNS: His blood pressure is 125/74, heart rate is 73 and regular, respiratory rate is 21. He is afebrile. HEENT: Unremarkable. CHEST: Clear to auscultation. CARDIOVASCULAR: Reveals a regular rate and rhythm. EXTREMITIES: There is no significant lower extremity edema. The incision is well healing. There is no drainage. LABORATORY DATA: No new labs done today. IMPRESSION: 1. Status post bypass surgery for due to significant coronary artery disease. He seems to be doing very well. He did have some confusion. This does appear to be improving. He is almost back to his baseline according to the family. 2. History of prostate cancer. He has been on chemotherapy. He does have complaints of his teeth are falling out and he needs to undergo some teeth extractions and have full dentures. This seems to be a problem because he has been unable to the eat, is due to some aspiration problems, but he has been able to have some pureed foods and he has been complaining of the food and perhaps if the swallowing mechanism is normal, he can be advanced on his diet. 3. History of atrial fibrillation/flutter. This appears to be stable at this time. He remains in sinus rhythm. 4. History of confusion, delirium postoperatively and this also has now improved and is almost back to normal. PLAN: I have reviewed his medications. I would agree with the present medicines at this time. He is still on the amiodarone 400 mg a day, aspirin, atorvastatin, Coreg. He is also on Omnicef and he is on deep venous thrombosis prophylaxis with Lovenox as well as other p.r.n. medications and Lasix is 40 mg a day as well as albuterol treatments. Overall, he seems to be doing much better and has improved. Job ID: [id number]
[2018-09-02 15:54] VITALS: BP 119/63
[2018-09-02] MEDS: Furosemide 40 MG/4 ML VIAL SLOW IVP SCH (17:15)
--- NOTE | 2018-09-02 20:29 | PRG ---
DATE OF SERVICE: 09/02/2018 SUBJECTIVE: Ivan Subramanian was tentatively scheduled to go to rehab. I was asked to review his medications for discharge. I could not determine what his true ejection fraction was. The last echo in the hospital records was in 2017 with an ejection fraction of 20-25 percent. Since he was not being considered for defibrillator, I would like to believe that his ejection fraction is improved dramatically. I have asked the nurses to contact the steamfitter to review this. If he has a normal ejection fraction, perhaps he can be discharged without Lasix, although he does have significant some edema in his lower extremities likely secondary to his obesity. OBJECTIVE: GENERAL: He is in no distress. LUNGS: Were completely clear. He said he felt like he is ready to go to rehab. IMPRESSION: Status post coronary artery bypass grafting, clinically stable for rehab. The question about the [employer] will be answered by Cardiology. Job ID: [id number]
--- NOTE | 2018-09-03 11:07 | DIS ---
DATE OF ADMISSION: 08/25/2018 DATE OF DISCHARGE: 09/02/2018 PRINCIPAL DIAGNOSES: Coronary artery disease with decreased left ventricular function. SECONDARY DIAGNOSES: Atrial fibrillation, pulmonary infiltrate, and encephalopathy. Secondary diagnoses at present do not specifically addressed hypertension, hyperlipidemia, gastroesophageal reflux disease, and obstructive sleep apnea. HISTORY OF PRESENT ILLNESS/HOSPITAL COURSE: The patient is a 73-year-old man with known coronary artery disease, who had undergone a previous catheter based ablation of atrial flutter. He continued to have dyspnea on exertion and recent cardiac catheterization showed significant 3-vessel coronary artery disease with decreased LV function. He was electively admitted for surgical revascularization and underwent 3-vessel bypass procedure using left internal mammary artery to the mid LAD and vein grafts to an obtuse marginal and diagonal. Perioperatively, the patient had atrial fibrillation with fast ventricular response, requiring amiodarone and digoxin. He became confused and combative and required sedation. He had a left-sided pulmonary infiltrate and was empirically started on antibiotics, should this represent pneumonia. Converted to sinus rhythm and his perioperative delirium gradually cleared. He was discharged to a rehabilitation facility on amiodarone 400 mg a day, aspirin, Lipitor, and Coreg and his antibiotics were switched to Omnicef. Job ID: [id number]
== END 2018-09-02 17:50 | DRG 235 ==
LOC: SURG A 08-25 05:51 → CCU 08-25 11:41 → IMCU/EMU 08-29 23:56
PROVIDERS: ADMIT Thoracic Surgery (Cardiothoracic Vascular Surgery); ATTEND Thoracic Surgery (Cardiothoracic Vascular Surgery)
PROC: 02100Z9 Bypass Coronary Artery, One Artery from Left Internal Mammary, Open Approach (ICD-10-PCS; principal; 2018-08-25)
PROC: 021109W Bypass Coronary Artery, Two Arteries from Aorta with Autologous Venous Tissue, Open Approach (ICD-10-PCS; 2018-08-25)
PROC: 06BQ4ZZ Excision of Left Saphenous Vein, Percutaneous Endoscopic Approach (ICD-10-PCS; 2018-08-25)
PROC: 5A1221Z Performance of Cardiac Output, Continuous (ICD-10-PCS; 2018-08-25)
DX: I25.10 Atherosclerotic heart disease of native coronary artery without angina pectoris (principal); G93.41 Metabolic encephalopathy; J18.9 Pneumonia, unspecified organism; F05 Delirium due to known physiological condition; J90 Pleural effusion, not elsewhere classified; J98.11 Atelectasis; I47.1 Supraventricular tachycardia; I50.1 Left ventricular failure, unspecified; I48.91 Unspecified atrial fibrillation; Z85.46 Personal history of malignant neoplasm of prostate; Z92.21 Personal history of antineoplastic chemotherapy; Z79.82 Long term (current) use of aspirin; E66.01 Morbid (severe) obesity due to excess calories; I10 Essential (primary) hypertension; E78.5 Hyperlipidemia, unspecified; K21.9 Gastro-esophageal reflux disease without esophagitis; G47.33 Obstructive sleep apnea (adult) (pediatric); E78.00 Pure hypercholesterolemia, unspecified; Z68.36 Body mass index [BMI] 36.0-36.9, adult; T50.995A Adverse effect of other drugs, medicaments and biological substances, initial encounter
CPT/HCPCS: 36415; 36416; 70450; 71045; 80048; 80162; 82805; 84443; 85025; 85610; 85730; 86850; 86900; 86901; 93005; 93010; 93798; 94640; J0282; J0360; J0670; J0692; J1100; J1160; J1630; J1642; J1644; J1650; J1815; J1885; J1940; J2001; J2060; J2150; J2250; J2405; J2440; J2720; J3010; J3370; J3475; J3480; J3486; J3490; J7050; J7070; J7620; P9045; Q0163; S0017; S0028

== ENCOUNTER 2024-01-04 22:07 | Inpatient (IN) | payer MEDICARE, OTHER ==
[~2024-01-04 22:07] MED LIST changes: -Diazepam 5 MG TAB ONE; -Fentanyl 100 MCG/2 ML VIAL ONE; -Heparin 10,000 UNITS/1 ML VIAL ONE; -Isoproterenol 0.2 MG/1 ML AMP ONE; -Lidocaine 1% (PF) 30 ML VIAL ONE; -Midazolam HCl 2 mg/2 ml Vial ONE; -Morphine 2 MG/ML SYRINGE ONE; -Nitroglycerin 100MG/250ML BOT 250 ML ONE; -Verapamil 5 MG/2 ML VIAL ONE
[2024-01-04] MEDS ORDERED: Acetaminophen 500 MG TAB ONE (23:27)
[2024-01-04 23:36] LABS: #Basophils 0.03 10x3/uL (0.0-0.2); #Eosinphils Less than 0.03 10x3/uL (0.0-0.7); %Basophils 0.2 % (0.0-1.0); %Lymphocytes 6.5 % (21.0-51.0); %Monocytes 7.9 % (0.0-10.0); %Neutrophils 84.9 % (42.0-75.0); Hemoglobin 15.3 g/dL (14.0-18.0); Mean Corpuscular HGB CONC 33.3 g/dL (32.0-36.0); Mean Corpuscular Hemoglobin 30.2 pg (27.0-31.0); Mean Corpuscular Volume 90.7 fL (78.0-98.0); Platelet Count 168 10x3/uL (130-400); RBC Distribution Width 14.3 % (11.5-14.5); Red Blood Cell (RBC) Count 5.07 mill/uL (4.70-6.10)
[2024-01-05 00:05] LABS: ALT (SGPT) 14 U/L (8-55); AST (SGOT) 16 U/L (5-34); Albumin 3.3 g/dL (3.4-4.8); Alkaline Phosphatase 85 U/L (40-110); Anion Gap 16 mmol/L (10-20); BUN (Urea Nitrogen) 16 mg/dL (8.4-25.7); Bilirubin, Total 2.1 mg/dL (0.2-1.2); Calc. Creatinine Clearance 0 mL/min (70-130); Calcium 8.8 mg/dL (7.8-10.44); Carbon Dioxide 23 mmol/L (23-31); Chloride 101 mmol/L (98-107); Estimated GFR 66; Globulin 2.9 g/dL (2.4-3.5); Glucose 126 mg/dL (83-110); Protein, Total 6.2 g/dL (5.8-8.1); Sodium 136 mmol/L (136-145)
[2024-01-05] MEDS ORDERED: cefTRIAXone (ROCEPHIN) 1 GM VIAL ONE (00:06)
[2024-01-05] MEDS ORDERED: Sodium Chloride 0.9% 100 ML ONE (00:07)
[2024-01-05 00:09] LABS: Troponin I 0.029 ng/mL (< 0.028)
[2024-01-05 01:11] LABS: Bacteria/HPF None Seen HPF (None Seen); Bilirubin Negative (Negative); Blood, Urine 1+ (Negative); CAUTI Indications for Culture Alt mental st,lethar; Clarity Clear (Clear); Glucose, Urine (Dipstick) Normal (Negative); Ketone, Urine Negative (Negative); Leukocyte Negative Leu/uL (Negative); Nitrite Negative (Negative); Protein, Urine (Dipstick) 70 mg/dL (Neg-Trace); Specific Gravity, Urine 1.024 (1.002-1.036); Squamous Epithelial 0-3 HPF (0-3); Urobilinogen 12 mg/dL (Less than 2); WBC/HPF 0-3 HPF (0-3); pH, Urine 7.5 (5.0-9.0)
[2024-01-05 01:16] LABS: Urine Culture Reflex No No
[2024-01-05 01:59] LABS: Troponin I 0.044 ng/mL (< 0.028)
[2024-01-05] MEDS ORDERED: Acetaminophen 650 MG Suppository PR PRN (02:07)
[2024-01-05] MEDS ORDERED: Vancomycin 1 GM/200 ML (FROZEN) BAG ONE (02:31)
[2024-01-05] MEDS ORDERED: Nitroglycerin 0.4 MG TAB (25 Tab Bottle) SL PRN (03:02)
[2024-01-05] MEDS ORDERED: Ipratropium/Albuterol 3 ML NEB NEB PRN (03:16)
[2024-01-05] MEDS ORDERED: Electrolyte Replacement Protocol 1 EACH FS SCH (03:30)
[2024-01-05 03:56] LABS: #Basophils Less than 0.03 10x3/uL (0.0-0.2); #Eosinphils Less than 0.03 10x3/uL (0.0-0.7); %Basophils 0.2 % (0.0-1.0); %Lymphocytes 9.6 % (21.0-51.0); %Monocytes 7.6 % (0.0-10.0); %Neutrophils 82.2 % (42.0-75.0); Hematocrit 43.5 % (42.0-52.0); Mean Corpuscular HGB CONC 32.2 g/dL (32.0-36.0); Mean Corpuscular Hemoglobin 30.2 pg (27.0-31.0); Mean Platelet Volume 9.8 fL (7.4-10.4); Platelet Count 145 10x3/uL (130-400); RBC Distribution Width 14.5 % (11.5-14.5); Red Blood Cell (RBC) Count 4.63 mill/uL (4.70-6.10)
[2024-01-05 04:09] VITALS: BMI 37.9
[2024-01-05 04:21] LABS: Anion Gap 10 mmol/L (10-20); BUN (Urea Nitrogen) 16 mg/dL (8.4-25.7); Calc. Creatinine Clearance 113 mL/min (70-130); Calcium 8.3 mg/dL (7.8-10.44); Carbon Dioxide 27 mmol/L (23-31); Cardiac Risk 2.5 (Less than 4.5); Chloride 101 mmol/L (98-107); Cholesterol 77 mg/dl (< 200 Desired); Estimated GFR 79; Glucose 138 mg/dL (83-110); HDL Cholesterol 31 mg/dL (>60 Neg Risk); LDL Cholesterol, Calculated 38 mg/dL; Magnesium 1.5 mg/dL (1.6-2.6); Potassium 3.7 mmol/L (3.5-5.1); Sodium 134 mmol/L (136-145); Triglycerides 40 mg/dL (Less than 150)
[2024-01-05] MEDS: Aspirin 325 MG TAB PO SCH (04:29)
[2024-01-05] MEDS: Furosemide 20 MG (2 mL) VIAL SLOW IVP SCH ×2 (04:29→14:21)
[2024-01-05 04:34] LABS: Troponin I 0.024 ng/mL (< 0.028)
[2024-01-05] MEDS: Furosemide 40 MG (4 mL) VIAL SLOW IVP SCH (04:36)
[2024-01-05] MEDS: Vancomycin (BATCH) 1.5 GM in Premix 1 BAG IVPB SCH (04:37)
[2024-01-05 07:11] LABS: Hemoglobin A1c 5.9 % (4.0-6.0)
[2024-01-05] MEDS ORDERED: Vancomycin 1 GM in Sodium Chloride 0.9% 250 ML 250 ML IVPB SCH (09:00)
[2024-01-05] MEDS ORDERED: Enoxaparin 40 MG (0.4 mL) SYRINGE SC SCH (09:00)
[2024-01-05] MEDS: Magnesium 2 GM/50 ML(in water) 2 GM in Premix 1 BAG IVPB SCH (09:14)
[2024-01-05] MEDS: Aspirin 325 MG TAB ONE (09:14)
[2024-01-05] MEDS: Furosemide 40 MG (4 mL) VIAL ONE (09:14)
[2024-01-05] MEDS: Apixaban 5 MG TAB PO SCH (09:21)
[2024-01-05] MEDS: Famotidine 20 MG TAB PO SCH (09:21)
[2024-01-05] MEDS: Cefepime 2 GM in Sodium Chloride 0.9% 100 ML IVPB SCH (09:21)
[2024-01-05] MEDS ORDERED: Furosemide 40 MG (4 mL) VIAL SLOW IVP SCH (14:00)
[2024-01-05] MEDS ORDERED: Vancomycin (BATCH) 1.25 GM in Premix 1 BAG IVPB SCH (18:00)
[2024-01-05] MEDS: Atorvastatin Calcium 40 MG TAB PO SCH (20:01)
[2024-01-05] MEDS: Metoprolol Tartrate 25 MG TAB PO SCH (20:01)
[2024-01-05] MEDS: Tamsulosin HCl 0.4 MG CAP PO SCH (20:01)
[2024-01-05] MEDS ORDERED: Metoprolol Tartrate 25 MG TAB PO SCH (21:00)
[2024-01-05] MEDS: dilTIAZem 125 MG, Admixture Fee 1 EACH in Sodium Chloride 0.9% 100 ML IVPB SCH (21:04)
[2024-01-05] MEDS: Acetaminophen 325 MG TAB PO PRN (21:51)
[2024-01-06] MEDS: Furosemide 40 MG (4 mL) VIAL SLOW IVP SCH (05:42)
[2024-01-06] MEDS ORDERED: Metoprolol Tartrate 25 MG TAB PO SCH (09:00)
[2024-01-06 09:28] LABS: #Basophils Less than 0.03 10x3/uL (0.0-0.2); #Eosinphils Less than 0.03 10x3/uL (0.0-0.7); %Basophils 0.2 % (0.0-1.0); %Lymphocytes 4.4 % (21.0-51.0); %Monocytes 4.2 % (0.0-10.0); %Neutrophils 90.8 % (42.0-75.0); Hematocrit 41.8 % (42.0-52.0); Hemoglobin 13.8 g/dL (14.0-18.0); Mean Corpuscular Hemoglobin 30.6 pg (27.0-31.0); Mean Corpuscular Volume 92.7 fL (78.0-98.0); Mean Platelet Volume 9.5 fL (7.4-10.4); Platelet Count 139 10x3/uL (130-400); RBC Distribution Width 14.5 % (11.5-14.5); Red Blood Cell (RBC) Count 4.51 mill/uL (4.70-6.10)
[2024-01-06 09:47] LABS: Anion Gap 13 mmol/L (10-20); BUN (Urea Nitrogen) 19 mg/dL (8.4-25.7); Calc. Creatinine Clearance 101 mL/min (70-130); Calcium 8.4 mg/dL (7.8-10.44); Carbon Dioxide 25 mmol/L (23-31); Chloride 96 mmol/L (98-107); Estimated GFR 70; Glucose 177 mg/dL (83-110); Potassium 3.2 mmol/L (3.5-5.1); Sodium 131 mmol/L (136-145)
[2024-01-06] MEDS: Losartan 25 MG TAB PO SCH (10:24)
[2024-01-06] MEDS: Potassium Chloride 20 MEQ TAB PO SCH (15:09)
[2024-01-06] MEDS: Digoxin 0.5 MG/2 ML AMP SLOW IVP SCH (18:02)
[2024-01-06] MEDS: Metoprolol Tartrate 25 MG TAB PO SCH (20:48)
[2024-01-06] MEDS: Cefdinir 300 MG CAP PO SCH (20:48)
[2024-01-07 03:59] LABS: #Basophils Less than 0.03 10x3/uL (0.0-0.2); #Eosinphils Less than 0.03 10x3/uL (0.0-0.7); %Basophils 0.3 % (0.0-1.0); %Eosinophils 0.3 % (0.0-10.0); %Lymphocytes 8.6 % (21.0-51.0); %Monocytes 5.8 % (0.0-10.0); %Neutrophils 84.7 % (42.0-75.0); Hematocrit 41.2 % (42.0-52.0); Hemoglobin 13.5 g/dL (14.0-18.0); Mean Corpuscular HGB CONC 32.8 g/dL (32.0-36.0); Mean Corpuscular Hemoglobin 29.5 pg (27.0-31.0); Mean Platelet Volume 9.9 fL (7.4-10.4); Platelet Count 142 10x3/uL (130-400); RBC Distribution Width 14.4 % (11.5-14.5); Red Blood Cell (RBC) Count 4.58 mill/uL (4.70-6.10)
[2024-01-07 04:17] LABS: Anion Gap 13 mmol/L (10-20); BUN (Urea Nitrogen) 23 mg/dL (8.4-25.7); Calc. Creatinine Clearance 114 mL/min (70-130); Calcium 8.4 mg/dL (7.8-10.44); Carbon Dioxide 23 mmol/L (23-31); Chloride 96 mmol/L (98-107); Estimated GFR 80; Glucose 135 mg/dL (83-110); Potassium 3.2 mmol/L (3.5-5.1); Sodium 129 mmol/L (136-145)
[2024-01-07] MEDS: Metoprolol Tartrate 25 MG TAB PO SCH ×2 (10:37→20:35)
[2024-01-07] MEDS: Spironolactone 25 MG TAB PO SCH (10:43)
[2024-01-07] MEDS: Potassium Chloride 20 MEQ TAB PO SCH (10:44)
[2024-01-07 14:07] LABS: Potassium 3.7 mmol/L (3.5-5.1)
[2024-01-07] MEDS: Enoxaparin 30 MG (0.3 mL) SYRINGE SC SCH (20:35)
[2024-01-07] MEDS: Enoxaparin 100 MG (1 mL) SYRINGE SC SCH (20:35)
[2024-01-08 07:02] LABS: #Basophils Less than 0.03 10x3/uL (0.0-0.2); %Basophils 0.2 % (0.0-1.0); %Eosinophils 1.2 % (0.0-10.0); %Lymphocytes 13.2 % (21.0-51.0); %Neutrophils 76.2 % (42.0-75.0); Hematocrit 43.7 % (42.0-52.0); Hemoglobin 14.1 g/dL (14.0-18.0); Mean Corpuscular HGB CONC 32.3 g/dL (32.0-36.0); Mean Corpuscular Hemoglobin 29.8 pg (27.0-31.0); Mean Corpuscular Volume 92.4 fL (78.0-98.0); Mean Platelet Volume 10.1 fL (7.4-10.4); Platelet Count 157 10x3/uL (130-400); RBC Distribution Width 14.5 % (11.5-14.5); Red Blood Cell (RBC) Count 4.73 mill/uL (4.70-6.10)
[2024-01-08 07:23] LABS: ALT (SGPT) 36 U/L (8-55); AST (SGOT) 46 U/L (5-34); Albumin 2.4 g/dL (3.4-4.8); Alkaline Phosphatase 96 U/L (40-110); Anion Gap 15 mmol/L (10-20); BUN (Urea Nitrogen) 19 mg/dL (8.4-25.7); Bilirubin, Total 0.8 mg/dL (0.2-1.2); Calc. Creatinine Clearance 133 mL/min (70-130); Calcium 8.5 mg/dL (7.8-10.44); Carbon Dioxide 24 mmol/L (23-31); Chloride 98 mmol/L (98-107); Estimated GFR 90; Glucose 111 mg/dL (83-110); Potassium 4.2 mmol/L (3.5-5.1); Protein, Total 6.4 g/dL (5.8-8.1); Sodium 133 mmol/L (136-145)
[2024-01-08] MEDS: Spironolactone 25 MG TAB PO SCH (09:04)
[2024-01-08] MEDS: Losartan 25 MG TAB PO SCH (11:23)
[2024-01-08] MEDS: Bisacodyl 10 MG SUPP PR SCH (13:27)
[2024-01-08] MEDS ORDERED: Communication Order-Pharmacy FS SCH (18:00)
[2024-01-09] MEDS: Sodium Chloride 0.9% 1,000 ML IV SCH (05:07)
[2024-01-09 08:56] VITALS: TEMP 97.1
[2024-01-09] MEDS: Apixaban 5 MG TAB PO SCH (09:32)
[2024-01-09 13:24] VITALS: BP 126/88
== END 2024-01-09 16:15 | disposition home or self-care (01) | DRG 871 ==
LOC: ERS 22:07 → 2SW 01-05 02:15 → 2NO 01-06 05:41
PROVIDERS: ADMIT Internal Medicine; ATTEND Family Medicine
DX: A41.9 Sepsis, unspecified organism (principal); G93.41 Metabolic encephalopathy; I50.33 Acute on chronic diastolic (congestive) heart failure; J18.9 Pneumonia, unspecified organism; I47.20 Ventricular tachycardia, unspecified; E87.1 Hypo-osmolality and hyponatremia; I25.10 Atherosclerotic heart disease of native coronary artery without angina pectoris; M19.90 Unspecified osteoarthritis, unspecified site; I48.91 Unspecified atrial fibrillation; E78.5 Hyperlipidemia, unspecified; K21.9 Gastro-esophageal reflux disease without esophagitis; M54.16 Radiculopathy, lumbar region; I95.1 Orthostatic hypotension; Z96.642 Presence of left artificial hip joint; I11.0 Hypertensive heart disease with heart failure; E66.9 Obesity, unspecified; E87.6 Hypokalemia; I95.9 Hypotension, unspecified; N40.1 Benign prostatic hyperplasia with lower urinary tract symptoms; R10.30 Lower abdominal pain, unspecified; I48.0 Paroxysmal atrial fibrillation; Z79.01 Long term (current) use of anticoagulants; Z95.1 Presence of aortocoronary bypass graft; Z79.899 Other long term (current) drug therapy; Z79.82 Long term (current) use of aspirin; Z90.49 Acquired absence of other specified parts of digestive tract
CPT/HCPCS: 36415; 71045; 74177; 80048; 80053; 80061; 81001; 83036; 83605; 83690; 83735; 83880; 84443; 84484; 85025; 87040; 87086; 93005; 93010; 93306; 93798; 94760; J0692; J0696; J1650; J1940; J3370-JW; J3475; J3490; J7050; Q9967